=== PATIENT | male | born 1995 | race Caucasian/White ===

== ENCOUNTER 2018-01-19 18:20 | Emergency (ER) | payer BC ==
[2018-01-19 18:25] VITALS: BP 130/76; BMI 23.2
--- NOTE | 2018-01-19 18:54 | DR.GENAD ---
HPI - PCP Primary Care Physician: nfd - Complaint/Symptoms Chief Complaint Doctors Comments: History as stated. Acute onset of neck pain s/ p jumping up suddenly to get something. Chief Complaint:: patient jumped up to get something and when he landed he started having bad neck pain that makes him nauseaed - Source History Provided: Patient - Mode of Arrival Mode of Arrival: Ambulatory - Timing Onset of Chief Complaint: 01/19/18 PMH - PMH Past Medical History: No Past Surgical History: No - Family History History of Family Medical Conditions: No - Social History Does patient currently use any type of tobacco product: No Have you used tobacco products in the last 12 months: No Type of Tobacco Use: None Does any household member use tobacco: No Alcohol Use: Occasionally Do you use any recreational Drugs:: No Lives With: Family Lives Where: Home - infectious screening In the last 2 months have you had wt loss of >10#?: NO Have you had fever, night sweats or hemotysis?: No Have you traveled outside the country in the last 6 months?: No Isolation: Standard ROS - Review of Systems Eyes: No Symptoms Reported ENTM: No Symptoms Reported Respiratoy: No Symptoms Reported Cardiovascular: No Symptoms Reported Gastrointestinal/Abdominal: No Symptoms Reported Genitourinary: No Symptoms Reported Neurological: No Symptoms Reported Musculoskeletal: Muscle Pain, Neck (neck spasm) Integumentary: No Symptoms Reported Hematologic/Lymphatic: No Symptoms Reported Endocrine: No Symptoms Reported Psychiatric: No Symptoms Reported All Other Systems: Reviewed and Negative PE - Vital Signs Vitals: Temperature 98.7 F Pulse Rate 70 Respiratory Rate 16 Blood Pressure 130/76 O2 Sat by Pulse Oximetry 100 - General Limitations: No Limitations General Appearance: Alert, In No Apparent Distress - Head Head Exam: Normal Inspection, Atraumatic - Eyes Eye exam: Normal Appearance, PERRL, EOMI - ENT ENT Exam: Normal Exam External Ear Exam: Normal External Inspection TM/Canal Exam: Bilateral Normal Nose Exam: Normal Nose Exam Mouth Exam: Normal Inspection Throat Exam: Normal Inspection - Neck Neck Exam: Normal Inspection, Tenderness (superiorally) - Chest Chest Inspection: Normal Inspection - Respiratory Respiratory Exam: Normal Lung Sounds Bilat Respiratory Exam: Bilateral Clear to Auscultation - Cardiovascular Cardiovascular Exam: Regular Rate, Normal Rhythm - Abdominal Exam Abdominal Exam: Normal Inspection, Normal Bowel Sounds Abdominal Tenderness: negative: RUQ, RLQ, LUQ, LLQ, Epigastrium, Suprapubic, Diffuse, Mild, Moderate, Severe, Other - Extremities Extremities Exam: Normal Inspection, Full ROM - Back Back Exam: Normal Inspection, Full ROM - Neurologic Neurological Exam: Alert, Oriented X3, CN II-XII Intact - Psychiatric Psychiatric Exam: Normal Affect, Normal Mood - Skin Skin Exam: Warm, Dry, Intact ROR - XRAY XRAY Interpreted by: Radiologist (Cervical Spine: There is reversal of the normal cervical lordosis. No acute cortical disruption or vertebral body height loss identified. The disc spaces and facet joints are grossly maintained. No prevertebral soft tissue swelling. The C1-2 articulation is grossly maintained on the suboptimal open-mouth view. Impression: Reversal of the normal cervical lordosis is likely positional or secondary to muscle spasm. no evidence for acute cervical spine fracture or subluxation) - Diagnosis Discharge Problem: Neck muscle spasm - Discharge Plan Condition: Stable - Follow ups/Referrals Follow ups/Referrals: NFD,None [Primary Care Provider] - 3 days - Instructions
--- NOTE | 2018-01-19 19:34 | RAD ---
Cervical spine, AP, lateral, and open-mouth views Indication: Neck pain after injury. Comparison: None Findings: There is reversal of the normal cervical lordosis. No acute cortical disruption or vertebra l body height loss identified. The disc spaces and facet joints are grossly maintained. No prevertebr al soft tissue swelling. The C1-2 articulation is grossly maintained on the suboptimal open-mouth vie w. Impression: Reversal of the normal cervical lordosis is likely positional or secondary to muscle spasm. No evidence for acute cervical spine fracture or subluxation. Reported By:
[2018-01-19] MEDS ORDERED: VALIUM INJ IM ONE (19:46)
== END 2018-01-19 20:18 | disposition home or self-care (01) ==
LOC: ER 18:28
DX: M62.838 Other muscle spasm (principal)
CPT/HCPCS: 72040; 96372; 99282; J3360

== ENCOUNTER 2018-02-03 09:34 | Emergency (ER) | payer BC ==
[2018-02-03 09:39] VITALS: BP 120/66; BMI 22.9
--- NOTE | 2018-02-03 10:38 | DR.GENAD ---
HPI - PCP Primary Care Physician: megan - Complaint/Symptoms Chief Complaint:: pt stated 6 days ago he has had a cough, sore throat, headache and his left ear has been hurting and draining. - Nurses notes reviewed Nurses Notes Review: Yes - Source History Provided: Patient - Mode of Arrival Mode of Arrival: Ambulatory - Timing Onset of Chief Complaint: 01/29/18 PMH - PMH Past Medical History: No Past Surgical History: No - Family History History of Family Medical Conditions: No - Social History Does patient currently use any type of tobacco product: No Have you used tobacco products in the last 12 months: No Type of Tobacco Use: None Does any household member use tobacco: No Alcohol Use: Rarely Do you use any recreational Drugs:: No Lives With: Family Lives Where: Home - infectious screening In the last 2 months have you had wt loss of >10#?: NO Have you had fever, night sweats or hemotysis?: No Have you traveled outside the country in the last 6 months?: No Isolation: Standard ROS - Review of Systems Constitutional: No Symptoms Reported Eyes: No Symptoms Reported ENTM: Ear Pain, Ear Discharge, Throat Pain Respiratoy: Non-Productive Cough Cardiovascular: No Symptoms Reported Gastrointestinal/Abdominal: No Symptoms Reported Genitourinary: No Symptoms Reported Neurological: No Symptoms Reported Musculoskeletal: No Symptoms Reported Integumentary: No Symptoms Reported Hematologic/Lymphatic: No Symptoms Reported Endocrine: No Symptoms Reported Psychiatric: No Symptoms Reported PE - Vital Signs Vitals: Temperature 98.2 F Pulse Rate 73 Respiratory Rate 16 Blood Pressure 120/66 O2 Sat by Pulse Oximetry 99 - General Limitations: No Limitations General Appearance: Alert, In No Apparent Distress - Head Head Exam: Normal Inspection - Eyes Eye exam: Normal Appearance - ENT ENT Exam: Normal Exam External Ear Exam: Normal External Inspection Nose Exam: Normal Nose Exam Mouth Exam: Normal Inspection Throat Exam: Normal Inspection - Neck Neck Exam: Normal Inspection - Chest Chest Inspection: Normal Inspection - Respiratory Respiratory Exam: Normal Lung Sounds Bilat - Cardiovascular Cardiovascular Exam: Regular Rate, Normal Rhythm - Abdominal Exam Abdominal Exam: Normal Inspection, Normal Bowel Sounds, Soft - Extremities Extremities Exam: Normal Inspection - Back Back Exam: Normal Inspection - Neurologic Neurological Exam: Alert, Oriented X3 - Psychiatric Psychiatric Exam: Normal Affect, Normal Mood - Skin Skin Exam: Warm, Dry, Intact, Normal Color ROR - Labs Reviewed Laboratory: S. pyogenes (TEM-PCR) Not detected (NOT DETECT) 02/03/18 10:13 - XRAY XRAY Interpreted by: Self (No acute findings ) - Diagnosis Discharge Problem: Upper respiratory infection - Discharge Plan Disposition: 01 HOME, SELF-CARE Condition: Stable - Follow ups/Referrals Follow ups/Referrals: Won Laurent [Primary Care Provider] - 3 days - Instructions Instructions: Upper Respiratory Infection, Adult, [id number]
--- NOTE | 2018-02-03 10:47 | RAD ---
Examination: Chest, PA and lateral views History: Cough Findings: Normal appearance of heart, lungs, mediastinum and pleural spaces. Impression: Within normal limits. Reported By:
== END 2018-02-03 12:15 | disposition home or self-care (01) ==
LOC: ER 10:05
DX: J06.9 Acute upper respiratory infection, unspecified (principal)
CPT/HCPCS: 71046; 87651; 99282